=== PATIENT | female | born 1970 | race Asian ===

== ENCOUNTER 2017-09-16 20:39 | Emergency (ER) | payer BC ==
[2017-09-16] MEDS: SOD CHLORIDE 0.9% 1,000 ML IV (21:14)
[2017-09-16 21:48] LABS: ADD MAN DIFF? NO
[2017-09-16 21:51] LABS: BASOPHILS % 0.6 % (0.0-2.0); EOSINOPHILS # 0.1 10^3/ul (0.0-0.5); EOSINOPHILS % 1.4 % (0.0-7.0); HEMATOCRIT 43.7 % (37.0-47.0); LYMPHOCYTES # 2.4 10^3/ul (0.8-2.9); LYMPHOCYTES % 33.1 % (15.0-51.0); MEAN CORPUSCULAR HEMOGLOBIN 31.7 pg (29.0-33.0); MEAN CORPUSCULAR VOLUME 98.9 fl (82.0-101.0); MEAN PLATELET VOLUME 9.7 fl (7.4-10.4); MONOCYTE # 0.4 10^3/ul (0.3-0.9); MONOCYTES % 5.6 % (0.0-11.0); NEUTROPHIL # 4.2 10^3/ul (1.6-7.5); PLATELET COUNT 276 10^3/UL (140-415); RED BLOOD COUNT 4.42 10^6/ul (4.20-5.40); RED CELL DISTRIBUTION WIDTH 12.5 % (11.5-14.5)
[2017-09-16 21:51] LABS: WHITE BLOOD COUNT 7.2 10^3/ul (4.8-10.8)
[2017-09-16] MEDS: LIDOCAINE/MYLANTA 40 ML BTL PO (21:51)
[2017-09-16 22:21] LABS: ALANINE AMINOTRANSFERASE 28 IU/L (13-69); ALBUMIN 4.2 g/dl (3.3-4.9); ALKALINE PHOSPHATASE 47 IU/L (42-121); ANION GAP 15 (8-16); ASPARTATE AMINO TRANSFERASE 21 IU/L (15-46); BILIRUBIN,INDIRECT 0.2 mg/dl (0-1.1); BILIRUBIN,TOTAL 0.2 mg/dl (0.2-1.3); BLOOD UREA NITROGEN 20 mg/dl (7-20); CALCIUM 9.3 mg/dl (8.4-10.2); CARBON DIOXIDE 26 mmol/L (21-31); CHLORIDE 103 mmol/L (97-110); CREATININE 0.79 mg/dl (0.44-1.00); GLUCOSE 125 mg/dl (70-220); LIPASE 207 U/L (23-300); POTASSIUM 3.8 mmol/L (3.5-5.1); SODIUM 140 mmol/L (135-144); TOTAL PROTEIN 7.7 g/dl (6.1-8.1)
[2017-09-16 22:33] LABS: TROPONIN-I < 0.012 ng/ml (0.00-0.12)
[2017-09-16 23:14] LABS: URINE PH (Dip) POC 5.5 (5.0-8.5)
[2017-09-16 23:14] LABS: URINE BLOOD (Dip) POC Negative (NEGATIVE); URINE GLUCOSE (Dip) POC Negative (NEGATIVE); URINE KETONES (Dip) POC Negative (NEGATIVE); URINE LEUKOCYTE EST (Dip) POC Negative (NEGATIVE); URINE NITRITE (Dip) POC Negative (NEGATIVE); URINE TOTAL PROTEIN POC Negative (NEGATIVE)
[2017-09-17 00:12] LABS: ADD UMIC NO; UR ASCORBIC ACID NEGATIVE (NEGATIVE); UR BILIRUBIN (Dip) NEGATIVE (NEGATIVE); UR BLOOD (Dip) NEGATIVE (NEGATIVE); UR CLARITY CLEAR (CLEAR); UR COLOR YELLOW (YELLOW); UR GLUCOSE (Dip) NEGATIVE (NEGATIVE); UR KETONES (Dip) NEGATIVE (NEGATIVE); UR LEUKOCYTE ESTERASE (Dip) NEGATIVE Leu/ul (NEGATIVE); UR NITRITE (Dip) NEGATIVE (NEGATIVE); UR SPECIFIC GRAVITY (Dip) 1.028 (1.003-1.030); UR TOTAL PROTEIN (Dip) NEGATIVE (NEGATIVE); UR UROBILINOGEN (Dip) NEGATIVE (NEGATIVE)
== END 2017-09-17 00:25 | disposition home or self-care (01) ==
LOC: E/R 20:39
DX: M62.838 Other muscle spasm (principal); R10.13 Epigastric pain; Z91.040 Latex allergy status
CPT/HCPCS: 36415; 80053; 81003; 81025; 83690; 84484; 85025; 93005; 99284-25

== ENCOUNTER 2017-10-04 05:49 | Emergency (ER) | payer BC ==
[2017-10-04 06:17] LABS: ADD MAN DIFF? NO
[2017-10-04 06:19] LABS: WHITE BLOOD COUNT 7.4 10^3/ul (4.8-10.8)
[2017-10-04 06:19] LABS: BASOPHIL # 0.1 10^3/ul (0.0-0.1); BASOPHILS % 0.8 % (0.0-2.0); EOSINOPHILS # 0.2 10^3/ul (0.0-0.5); EOSINOPHILS % 2.4 % (0.0-7.0); HEMATOCRIT 42.4 % (37.0-47.0); HEMOGLOBIN 13.8 g/dl (12.0-16.0); LYMPHOCYTES # 3.4 10^3/ul (0.8-2.9); LYMPHOCYTES % 45.3 % (15.0-51.0); MEAN CORPUSCULAR HEMOGLOBIN 32.5 pg (29.0-33.0); MEAN CORPUSCULAR HGB CONC 32.5 g/dl (32.0-37.0); MEAN CORPUSCULAR VOLUME 99.8 fl (82.0-101.0); MONOCYTE # 0.5 10^3/ul (0.3-0.9); MONOCYTES % 6.2 % (0.0-11.0); NEUTROPHIL # 3.3 10^3/ul (1.6-7.5); PLATELET COUNT 285 10^3/UL (140-415); RED BLOOD COUNT 4.25 10^6/ul (4.20-5.40); RED CELL DISTRIBUTION WIDTH 12.8 % (11.5-14.5)
[2017-10-04 06:39] LABS: ALANINE AMINOTRANSFERASE 52 IU/L (13-69); ALBUMIN 4.3 g/dl (3.3-4.9); ALBUMIN/GLOBULIN RATIO 1.19; ALKALINE PHOSPHATASE 49 IU/L (42-121); ANION GAP 14 (8-16); ASPARTATE AMINO TRANSFERASE 30 IU/L (15-46); BILIRUBIN,INDIRECT 0.1 mg/dl (0-1.1); BILIRUBIN,TOTAL 0.1 mg/dl (0.2-1.3); BLOOD UREA NITROGEN 19 mg/dl (7-20); CALCIUM 9.2 mg/dl (8.4-10.2); CARBON DIOXIDE 28 mmol/L (21-31); CHLORIDE 107 mmol/L (97-110); CREATININE 0.67 mg/dl (0.44-1.00); GLUCOSE 132 mg/dl (70-220); LIPASE 128 U/L (23-300); POTASSIUM 3.7 mmol/L (3.5-5.1); SODIUM 145 mmol/L (135-144); TOTAL PROTEIN 7.9 g/dl (6.1-8.1)
[2017-10-04 06:54] LABS: TROPONIN-I < 0.012 ng/ml (0.000-0.120)
[2017-10-04] MEDS: FAMOTIDINE 20 MG INJ IV (06:55)
== END 2017-10-04 08:10 | disposition home or self-care (01) ==
LOC: E/R 05:49
DX: R55 Syncope and collapse (principal)
CPT/HCPCS: 36415; 71045; 80053; 82962; 83690; 84484; 85025; 93005; 96374; 99285-25

== ENCOUNTER 2018-04-22 22:27 | Inpatient (IN) | payer BC ==
[2018-04-22] MEDS: ONDANSETRON 4 MG INJ IV (23:16)
[2018-04-22] MEDS: SOD CHLORIDE 0.9% 1,000 ML IV (23:16)
[2018-04-22] MEDS: KETOROLAC 30 MG INJ IV (23:24)
[2018-04-22 23:26] LABS: ADD MAN DIFF? NO
[2018-04-22] MEDS: HYDROmorphONE 1 MG/ML SYG IV ×2 (23:26→23:49)
[2018-04-22 23:28] LABS: BASOPHIL # 0.1 10^3/ul (0.0-0.1); BASOPHILS % 0.6 % (0.0-2.0); EOSINOPHILS # 0.1 10^3/ul (0.0-0.5); EOSINOPHILS % 1.5 % (0.0-7.0); HEMATOCRIT 41.2 % (37.0-47.0); HEMOGLOBIN 13.3 g/dl (12.0-16.0); LYMPHOCYTES % 38.8 % (15.0-51.0); MEAN CORPUSCULAR HEMOGLOBIN 31.7 pg (29.0-33.0); MEAN CORPUSCULAR HGB CONC 32.3 g/dl (32.0-37.0); MEAN CORPUSCULAR VOLUME 98.3 fl (82.0-101.0); MEAN PLATELET VOLUME 9.2 fl (7.4-10.4); MONOCYTE # 0.4 10^3/ul (0.3-0.9); MONOCYTES % 4.6 % (0.0-11.0); NEUTROPHIL # 4.2 10^3/ul (1.6-7.5); NEUTROPHILS % 54.2 % (39.0-77.0); PLATELET COUNT 296 10^3/UL (140-415); RED BLOOD COUNT 4.19 10^6/ul (4.20-5.40); RED CELL DISTRIBUTION WIDTH 12.5 % (11.5-14.5)
[2018-04-22 23:28] LABS: WHITE BLOOD COUNT 7.8 10^3/ul (4.8-10.8)
[2018-04-22 23:34] LABS: ALANINE AMINOTRANSFERASE 15 IU/L (13-69); ALBUMIN 4.3 g/dl (3.3-4.9); ALBUMIN/GLOBULIN RATIO 1.22; ALKALINE PHOSPHATASE 41 IU/L (42-121); ANION GAP 12 (5-13); ASPARTATE AMINO TRANSFERASE 30 IU/L (15-46); BILIRUBIN,INDIRECT 0.2 mg/dl (0-1.1); BILIRUBIN,TOTAL 0.2 mg/dl (0.2-1.3); BLOOD UREA NITROGEN 25 mg/dl (7-20); CARBON DIOXIDE 24 mmol/L (21-31); CHLORIDE 102 mmol/L (97-110); CREATININE 0.64 mg/dl (0.44-1.00); Estimated GFR > 60 mL/min (>60); GLUCOSE 125 mg/dl (70-220); LIPASE 142 U/L (23-300); POTASSIUM 3.6 mmol/L (3.5-5.1); SODIUM 138 mmol/L (135-144); TOTAL PROTEIN 7.8 g/dl (6.1-8.1)
[2018-04-23] MEDS: LIDOCAINE/MYLANTA 40 ML BTL PO (00:31)
[2018-04-23] MEDS ORDERED: morphine 2 MG INJ IV (02:30)
[2018-04-23] MEDS ORDERED: ACETAMINOPHEN 650 MG SUPP PR (02:30)
[2018-04-23] MEDS ORDERED: NACL 0.9% 3 ML SYG IV (02:30)
[2018-04-23] MEDS: HYDROmorphONE 2 MG/ML SYG IV (03:45)
[2018-04-23] MEDS: PHENOL 1.4% SOLN 180 ML BTL MT ×3 (04:17→12:06)
[2018-04-23] MEDS: SOD CHLORIDE 0.9% 1,000 ML IV ×3 (04:18→22:01)
[2018-04-23] MEDS: PANTOPRAZOLE 40 MG INJ IV (06:34)
[2018-04-23] MEDS ORDERED: NITROGLYCERIN (SL) 0.4 MG TAB (07:02)
[2018-04-23] MEDS: NITROGLYCERIN (SL) 0.4 MG TAB SL (07:03)
[2018-04-23 07:38] LABS: CREATINE KINASE 92 IU/L (23-200)
[2018-04-23 07:51] LABS: CK INDEX 0.6; CK-MB 0.51 ng/ml (0.0-2.4); TROPONIN-I < 0.012 ng/ml (0.000-0.120)
[2018-04-23] MEDS: DIATR MEGLU/DIATRIZOATE SODIUM 30 ML SOLUTION PO (10:00)
[2018-04-23] MEDS: ONDANSETRON 4 MG INJ IV ×2 (10:43→14:40)
[2018-04-23] MEDS: IOHEXOL 14.3 MG(I)/ML (ADULT) BTL PO ×2 (11:00→12:45)
[2018-04-23] MEDS: KETOROLAC 30 MG INJ IV ×2 (12:01→20:03)
[2018-04-23] MEDS: HYDROmorphONE 0.5 MG/0.5 ML SYG IV (12:32)
[2018-04-23 15:55] LABS: CREATINE KINASE 77 IU/L (23-200)
[2018-04-23 16:06] LABS: CK INDEX 0.6; CK-MB 0.49 ng/ml (0.0-2.4); TROPONIN-I < 0.012 ng/ml (0.000-0.120)
[2018-04-23 22:02] LABS: CREATINE KINASE 95 IU/L (23-200)
[2018-04-23 22:11] LABS: CK INDEX 0.7
[2018-04-23 22:14] LABS: TROPONIN-I < 0.012 ng/ml (0.000-0.120)
[2018-04-24] MEDS: PANTOPRAZOLE 40 MG INJ IV (06:00)
[2018-04-24] MEDS: SOD CHLORIDE 0.9% 1,000 ML IV (08:01)
[2018-04-24 08:34] LABS: ADD MAN DIFF? NO
[2018-04-24 08:48] LABS: WHITE BLOOD COUNT 5.5 10^3/ul (4.8-10.8)
[2018-04-24 08:48] LABS: BASOPHIL # 0.1 10^3/ul (0.0-0.1); BASOPHILS % 0.9 % (0.0-2.0); EOSINOPHILS # 0.1 10^3/ul (0.0-0.5); EOSINOPHILS % 1.8 % (0.0-7.0); HEMOGLOBIN 11.6 g/dl (12.0-16.0); LYMPHOCYTES # 1.8 10^3/ul (0.8-2.9); LYMPHOCYTES % 32.7 % (15.0-51.0); MEAN CORPUSCULAR HEMOGLOBIN 31.7 pg (29.0-33.0); MEAN CORPUSCULAR HGB CONC 32.2 g/dl (32.0-37.0); MEAN CORPUSCULAR VOLUME 98.4 fl (82.0-101.0); MEAN PLATELET VOLUME 9.3 fl (7.4-10.4); MONOCYTE # 0.3 10^3/ul (0.3-0.9); MONOCYTES % 5.3 % (0.0-11.0); NEUTROPHIL # 3.2 10^3/ul (1.6-7.5); NEUTROPHILS % 58.9 % (39.0-77.0); PLATELET COUNT 260 10^3/UL (140-415); RED BLOOD COUNT 3.66 10^6/ul (4.20-5.40); RED CELL DISTRIBUTION WIDTH 12.6 % (11.5-14.5)
[2018-04-24 09:07] LABS: ALANINE AMINOTRANSFERASE 20 IU/L (13-69); ALBUMIN 3.3 g/dl (3.3-4.9); ALBUMIN/GLOBULIN RATIO 1.26; ALKALINE PHOSPHATASE 35 IU/L (42-121); ANION GAP 4 (5-13); ASPARTATE AMINO TRANSFERASE 19 IU/L (15-46); BILIRUBIN,INDIRECT 0.4 mg/dl (0-1.1); BILIRUBIN,TOTAL 0.4 mg/dl (0.2-1.3); BLOOD UREA NITROGEN 13 mg/dl (7-20); CALCIUM 8.3 mg/dl (8.4-10.2); CARBON DIOXIDE 28 mmol/L (21-31); CHLORIDE 107 mmol/L (97-110); CHOL/HDL RATIO 2.9 RATIO; CHOLESTEROL 145 mg/dl (100-200); CREATININE 0.72 mg/dl (0.44-1.00); Estimated GFR > 60 mL/min (>60); GLUCOSE 97 mg/dl (70-220); HDL CHOLESTEROL 49 mg/dl (34-88); LDL CHOLESTEROL,CALCULATED 82 mg/dl; MAGNESIUM 2.3 mg/dl (1.7-2.5); POTASSIUM 4.1 mmol/L (3.5-5.1); SODIUM 139 mmol/L (135-144); TOTAL PROTEIN 5.9 g/dl (6.1-8.1); TRIGLYCERIDES 69 mg/dl (0-149)
[2018-04-24 09:19] LABS: HEMOGLOBIN A1C 5.5 % (0-5.9)
== END 2018-04-24 11:08 | disposition home or self-care (01) | DRG 390 ==
LOC: FTE 22:27 → TEL 04-23 01:02
DX: K56.609 Unspecified intestinal obstruction, unspecified as to partial versus complete obstruction (principal); K25.9 Gastric ulcer, unspecified as acute or chronic, without hemorrhage or perforation
CPT/HCPCS: 36415; 71045; 74019; 74176; 80053; 80061; 82550; 82553; 83036; 83690; 83735; 84443; 84484; 84703; 85025; 93005; 96374; 96375; 99285-25

== ENCOUNTER 2018-05-14 19:42 | Emergency (ER) | payer BC | END 2018-05-14 20:49 | disposition home or self-care (01) | LOC: E/R 19:42 | DX: F41.9 Anxiety disorder, unspecified (principal); Z91.040 Latex allergy status | CPT/HCPCS: 99282 ==

== ENCOUNTER 2018-08-08 19:25 | Emergency (ER) | payer BC ==
[2018-08-08] MEDS: ONDANSETRON (ODT) 4 MG TAB ODT (20:50)
[2018-08-08] MEDS: traMADol 50 MG TAB PO (20:50)
[2018-08-08] MEDS: DIPHENHYDRAMINE 50 MG CAP PO (22:33)
[2018-08-08] MEDS: METHOCARBAMOL 750 MG TAB PO (22:33)
== END 2018-08-08 23:06 | disposition home or self-care (01) ==
LOC: FTE 19:25
DX: R51 Headache (principal); Z91.040 Latex allergy status
CPT/HCPCS: 70450; 99284-25

== ENCOUNTER 2018-08-18 04:35 | Emergency (ER) | payer BC ==
[2018-08-18 05:37] LABS: ADD MAN DIFF? NO
[2018-08-18 05:38] LABS: BASOPHIL # 0.1 10^3/ul (0.0-0.1); BASOPHILS % 0.7 % (0.0-2.0); EOSINOPHILS # 0.1 10^3/ul (0.0-0.5); EOSINOPHILS % 1.8 % (0.0-7.0); HEMATOCRIT 43.9 % (37.0-47.0); LYMPHOCYTES # 2.7 10^3/ul (0.8-2.9); LYMPHOCYTES % 37.5 % (15.0-51.0); MEAN CORPUSCULAR HEMOGLOBIN 31.5 pg (29.0-33.0); MEAN CORPUSCULAR HGB CONC 31.9 g/dl (32.0-37.0); MEAN CORPUSCULAR VOLUME 98.7 fl (82.0-101.0); MONOCYTE # 0.5 10^3/ul (0.3-0.9); MONOCYTES % 7.3 % (0.0-11.0); NEUTROPHIL # 3.8 10^3/ul (1.6-7.5); NEUTROPHILS % 52.4 % (39.0-77.0); PLATELET COUNT 320 10^3/UL (140-415); RED BLOOD COUNT 4.45 10^6/ul (4.20-5.40); RED CELL DISTRIBUTION WIDTH 12.8 % (11.5-14.5)
[2018-08-18 05:38] LABS: WHITE BLOOD COUNT 7.2 10^3/ul (4.8-10.8)
[2018-08-18] MEDS: SOD CHLORIDE 0.9% 1,000 ML IV (05:38)
[2018-08-18] MEDS: KETOROLAC 30 MG INJ IV (05:39)
[2018-08-18 05:53] LABS: URINE BLOOD (Dip) POC Negative (NEGATIVE); URINE GLUCOSE (Dip) POC Negative (NEGATIVE); URINE KETONES (Dip) POC Negative (NEGATIVE); URINE LEUKOCYTE EST (Dip) POC Negative (NEGATIVE); URINE NITRITE (Dip) POC Negative (NEGATIVE); URINE TOTAL PROTEIN POC Negative (NEGATIVE)
[2018-08-18 06:08] LABS: ALANINE AMINOTRANSFERASE 29 IU/L (13-69); ALBUMIN 4.7 g/dl (3.3-4.9); ALBUMIN/GLOBULIN RATIO 1.23; ALKALINE PHOSPHATASE 51 IU/L (42-121); ANION GAP 11 (5-13); ASPARTATE AMINO TRANSFERASE 27 IU/L (15-46); BILIRUBIN,INDIRECT 0.2 mg/dl (0-1.1); BILIRUBIN,TOTAL 0.2 mg/dl (0.2-1.3); BLOOD UREA NITROGEN 18 mg/dl (7-20); CALCIUM 9.8 mg/dl (8.4-10.2); CARBON DIOXIDE 22 mmol/L (21-31); CHLORIDE 107 mmol/L (97-110); CREATININE 0.62 mg/dl (0.44-1.00); Estimated GFR > 60 mL/min (>60); GLUCOSE 114 mg/dl (70-220); LIPASE 164 U/L (23-300); POTASSIUM 3.9 mmol/L (3.5-5.1); SODIUM 140 mmol/L (135-144); TOTAL PROTEIN 8.5 g/dl (6.1-8.1)
[2018-08-18 07:17] LABS: TROPONIN-I < 0.012 ng/ml (0.000-0.120)
== END 2018-08-18 07:05 | disposition home or self-care (01) ==
LOC: E/R 04:35
DX: R10.13 Epigastric pain (principal)
CPT/HCPCS: 36415; 74176; 80053; 81003; 81025; 83690; 84484; 85025; 93005; 96374; 99285-25

== ENCOUNTER 2018-10-20 06:30 | Emergency (ER) | payer BC ==
[2018-10-20] MEDS: DIPHTH/TET/ACEL PERTUSS (ADULT) 0.5 ML VIAL IM* (07:41)
[2018-10-20] MEDS: LIDOCAINE 2%/EPI (MDV) 20ML INJ INJ (07:59)
== END 2018-10-20 08:27 | disposition home or self-care (01) ==
LOC: FTE 08:27
DX: L02.31 Cutaneous abscess of buttock (principal); Z23 Encounter for immunization; Z91.040 Latex allergy status
CPT/HCPCS: 10060; 90471; 90715; 99283-25